=== PATIENT | female | born 1955 | race Caucasian/White ===

== ENCOUNTER 2024-03-21 07:33 | Day surgery (SDC) | payer MEDICARE, OTHER ==
[2024-03-21] MEDS: Lactated Ringers 1,000 ML IV SCH (07:45)
[2024-03-21] MEDS ORDERED: ePHEDrine 50 MG/ML SDV ONE (08:02)
[2024-03-21] MEDS ORDERED: Ketamine 200 MG/20 ML MDV ONE (08:02)
[2024-03-21] MEDS ORDERED: Propofol 200 MG/20 ML SDV ONE ×2 (08:02)
[2024-03-21] MEDS ORDERED: fentaNYL 50 MCG/ML SDV ONE (08:02)
== END 2024-03-21 09:28 | disposition home or self-care (01) ==
LOC: CC.SDS 07:33
PROVIDERS: ATTEND Family Medicine
DX: Z12.11 Encounter for screening for malignant neoplasm of colon (principal); D12.2 Benign neoplasm of ascending colon; K57.30 Diverticulosis of large intestine without perforation or abscess without bleeding; Z86.010 Personal history of colon polyps; E78.2 Mixed hyperlipidemia; Z79.899 Other long term (current) drug therapy
CPT/HCPCS: 00811; 88305; J2704; J3010; J3490; J7120